=== PATIENT | male | born 1990 | race Caucasian/White ===

== ENCOUNTER 2020-02-07 15:07 | Emergency (ER) | payer SELFPAY ==
[2020-02-07 15:34] VITALS: BP 174/120; PULSE 105; RESP 18; TEMP 36.3; O2SAT 96; BMI 32.1
--- NOTE | 2020-02-07 15:46 | W.ED.BACK ---
HPI - Back Pain/Injury General: Chief Complaint: Back Pain/Injury Stated Complaint: Neck/shoulder pain/ blurry vision Time Seen by Provider: 02/07/20 15:37 History of Present Illness: HPI Narrative: Patient is a 29-year-old male comes to the ED with chronic neck pain. Patient has been having this neck pain for the past 3 months. The past couple days the pain has gotten worse and patient reports having headache and nausea. Patient has taken some ibuprofen to help with pain and is provided little relief. 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 Associated symptoms: Reports nausea; Deny abdominal pain, chills, dysuria, fatigue, fever(s), hematuria or vomiting Review of Systems Const: Denies: fever(s), chills or fatigue Eyes: Denies: change in vision or eye discomfort ENMT: Denies: throat pain, odynophagia, nasal discharge or nasal congestion Card: Denies: chest pain, palpitations, edema, swelling of feet/ankles, dyspnea on exertion or orthopnea Resp: Denies: dyspnea, productive cough or non-productive cough GI: Reports: nausea; Denies: abdominal pain, vomiting, diarrhea, constipation or hematochezia : Denies: flank pain, difficulty urinating, dysuria or hematuria Musc: Reports: neck pain; Denies: back pain or extremity swelling Skin/Breast: Denies: rash or new lesions Neuro: Reports: headache(s) (Patient says neck pain causes a headache and some nausea.); Denies: numbness in extremities or weakness in extremities [facility] ED PFSH: Family History Father , 81 CAD (coronary artery disease) Hypertension Mother Diabetes CAD (coronary artery disease) Psychiatric illness Bipolar, Schizophrenia Social History Smoking and tobacco status: never smoked Alcohol intake: never Marital status: Current occupational status: employed Physical Exam Const: COMMON NORMALS: no acute distress, patient oriented x3, healthy appearing and alert GENERAL APPEARANCE: cooperative and comfortable HENMT: COMMON NORMALS: normocephalic HEAD & SCALP: normocephalic MOUTH: Normal oral and palatal mucosa present THROAT: posterior oropharynx normal and uvula midline Eye: COMMON NORMALS: Equal, round and reactive pupils present and conjunctivae normal CONJUNCTIVA: Yes conjunctivae normal PUPIL: Yes Equal, round and reactive pupils present Neck/C-Spine: COMMON NORMALS: supple GENERAL: Yes normal visual inspection CERVICAL SPINE: Yes Paracervical muscle tenderness and Yes Trapezius muscle tenderness Resp: COMMON NORMALS: normal respiratory effort, No retractions, No use of accessory muscles and clear to auscultation bilaterally AUSCULTATION: clear to auscultation bilaterally Cardio: COMMON NORMALS: regular rate, regular rhythm, S1 normal heart sound present, S2 normal heart sound present, No gallops present (Cardio), No clicks present (Cardio), No murmurs present (Cardio) and Peripheral pulses 2+ throughout RATE: regular rate RHYTHM: regular rhythm HEART SOUNDS: S1 normal heart sound present and S2 normal heart sound present PERIPHERAL PULSES: Peripheral pulses 2+ throughout GI: COMMON NORMALS: Normal to inspection, nondistended, normoactive bowel sounds present, Soft to palpation, non-tender and no masses PALPATION: Yes Soft to palpation : COMMON NORMALS: Yes no CVA tenderness BLADDER/KIDNEY EXAM: Yes no CVA tenderness Back/Pelvis: COMMON NORMALS: no CVA tenderness Extremity: COMMON NORMALS: normal to inspection Neuro: COMMON NORMALS: patient oriented x3 and moves all extremities SENSORIUM/ORIENTATION: Yes alert Skin: COMMON NORMALS: no rashes or lesions noted GENERAL SKIN EXAM: no rashes or lesions noted and dry skin Course Vital Signs: Vital signs: Vital Signs Temperature 97.3 F L 02/07/20 15:34 Pulse Rate 105 H 02/07/20 15:34 Respiratory Rate 18 02/07/20 15:34 Blood Pressure 174/120 02/07/20 15:34 Pulse Oximetry 96 02/07/20 15:34 MDM - Back Pain/Injury MDM Narrative: Medical decision making narrative: Patient is a 29-year-old male who comes to the ED with neck pain. Patient has tenderness upon palpation of the right trapezius muscle and also of the paracervical muscles laterally. Patient was given a dose of Toradol, Norflex and prednisone while here in the ED. He was diagnosed with cervical muscle pain and strain of right trapezius muscle and sent home with a prescription for ibuprofen 800 mg, Robaxin and methylprednisone Dosepak. He was told to follow-up with his PCP in 7 to 10 days for reevaluation. Return to ED precautions given. Patient understood and with plan Discharge Plan Discharge Patient Disposition: Home Clinical Impression: Cervical muscle pain Strain of right trapezius muscle Qualifiers: Encounter type: initial encounter Qualified Code(s): S46.811A - Strain of other muscles, fascia and tendons at shoulder and upper arm level, right arm, initial encounter Condition: Stable Prescriptions: New methocarbamol 750 mg tablet 750 mg PO Q8H Qty: 30 RF: 0 ibuprofen 800 mg tablet 800 mg PO Q8H PRN (Reason: pain) Qty: 30 RF: 0 methylprednisolone 4 mg tablets,dose pack See Rx Instructions .ROUTE .COMPLEX Qty: 21 RF: 0 No Action ibuprofen 200 mg Tablet 200 mg PO Q6H PRN (Reason: Pain) RF: 0 Discharge Orders: Discharge Order (Routine); Ordered 02/07/20 Ordered By: Angel Luis Abarca Discharge Diet: Regular Discharge Activity: Increase activity as tolerated Patient Instructions: Muscle Strain (ED) Activity Restrictions/Additional Instructions: Follow-up with medical provider as directed in 7-10 days. Take medications as prescribed. Methocarbamol is a muscle relaxer and can cause drowsiness so take at night before bed. You can use methocarbamol during the day but use with caution due to its drowsy this side effect. Return to the ER or your medical provider if condition worsens. Please read and understand discharge instructions. If any questions, please ask. Discharge Date/Time: 02/07/20 16:30 Coding Level of Care Code ED Composition Worker for Ana Paula Parker Exam Comprehensive
[2020-02-07] MEDS: ketorolac 60 mg/2 mL INJ IM (16:14)
[2020-02-07] MEDS: orphenadrine 30 mg/mL Inj 2 mL 60 MG IM (16:15)
[2020-02-07] MEDS: predniSONE 20 mg Tablet 60 MG PO (16:16)
[2020-02-07 16:29] VITALS: BP 198/92; PULSE 78; RESP 18; O2SAT 96
== END 2020-02-07 16:30 | disposition home or self-care (01) ==
PROVIDERS: Emergency Provider Physician Assistant
DX: M54.2 Cervicalgia (principal); S46.811A Strain of other muscles, fascia and tendons at shoulder and upper arm level, right arm, initial encounter; X58.XXXA Exposure to other specified factors, initial encounter
CPT/HCPCS: 12345; 96372; 99281; 99283; J1885; J2360; J7512

== ENCOUNTER → 2020-04-27 15:18 | Outpatient (BNVA) | payer SELFPAY | PROVIDERS: Visit Provider Emergency Medicine | DX: M25.511 Pain in right shoulder (principal); I10 Essential (primary) hypertension; M54.2 Cervicalgia; Z86.39 Personal history of other endocrine, nutritional and metabolic disease | CPT/HCPCS: 73030; 80053; 80061; 83880; 84443; 85025 ==

== ENCOUNTER 2020-04-29 14:11 | Outpatient (CLI) | payer SELFPAY | END 2020-04-29 14:12 | disposition home or self-care (01) | LOC: LAB 14:15 | PROVIDERS: PCP Emergency Medicine; Visit Provider Emergency Medicine | DX: R89.9 Unspecified abnormal finding in specimens from other organs, systems and tissues (principal) | CPT/HCPCS: 84132 ==

== ENCOUNTER 2020-05-04 21:27 | Emergency (ER) | payer SELFPAY ==
--- NOTE | 2020-05-04 21:29 | XR_ITS ---
WS: [id number] XR chest 1V portable [id number] REASON FOR EXAM: Chest pain FINDINGS: The chest is unchanged compared to previous examination of 09/26/2018. The heart and mediastinum are within normal limits. No active pulmonary parenchymal or pleural disease is noted. The bony thorax is intact. XR/XR chest 1V portable [id number] IMPRESSION: No acute chest abnormality.
--- NOTE | 2020-05-04 21:29 | ECG_ITS ---
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[id number] Requested By: Violet Molina Order Number: [id number] Juan MD: MARY CAMARA Measurements Intervals [place] Rate: 101 P: 26 NH: 164 QRS: -38 QRSD: 107 T: 59 QT: 332 QTc: 432 Interpretive Statements SINUS TACHYCARDIA POSSIBLE LEFT ATRIAL ENLARGEMENT [-0.1mV P WAVE IN V1/V2] LEFT AXIS DEVIATION [QRS AXIS < -30] PATTERN CONSISTENT WITH PULMONARY DISEASE Compared to ECG 09/26/2018 19:31:51 Sinus rhythm no longer present Intraventricular conduction delay no longer present Electronically Signed On 05-05-2020 19:29:14 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
[2020-05-04 21:32] VITALS: BP 174/112; PULSE 115; RESP 15; TEMP 37.3; O2SAT 94; BMI 30.7
[2020-05-04 21:51] VITALS: BP 174/112; PULSE 104; RESP 28; O2SAT 91
[2020-05-04 21:57] LABS: Basophils # 0.1 10^3/uL (0.0-0.1); Basophils % 0.7 %; Eosinophils # 0.1 10^3/uL (0.0-0.8); Eosinophils % 0.8 %; Hematocrit 48.4 % (42.0-52.0); Hemoglobin 16.9 g/dL (11.7-16.6); Lymphocytes # 1.8 10^3/uL (0.8-4.8); Lymphocytes % 23.4 %; Mean Corpuscular HGB Conc 34.9 g/dL (30.0-36.0); Mean Corpuscular Hemoglobin 28.4 pg (28.0-34.0); Mean Corpuscular Volume 81.2 fL (80-94); Mean Platelet Volume 9.8 fL (7.4-10.4); Monocytes # 1.3 10^3/uL (0.2-0.9); Monocytes % 17.8 %; Neutrophils # 4.25 10^3/uL (1.8-7.7); Neutrophils % 56.6 %; Nucleated Red Blood Cells % 0 %; Platelet Count 234 10^3/cmm (130-400); Red Blood Count 5.96 10^6/uL (4.1-5.3); Red Cell Distribution Width 12.9 % (12.1-15.1); White Blood Count 7.5 10^3/uL (4.0-10.0)
[2020-05-04 22:00] VITALS: RESP 17
[2020-05-04] MEDS: morphine 4 mg/mL SDV 1 mL IVP (22:00)
[2020-05-04] MEDS: ondansetron 2 mg/ML SDV 2 mL 4 MG IVP (22:00)
--- NOTE | 2020-05-04 22:01 | ED_ITS ---
HPI - Chest Pain General: Chief Complaint: Chest Pain Stated Complaint: cp/numbness in both arms Time Seen by Provider: 05/04/20 21:34 Source: patient and family Mode of arrival: ambulatory Limitations: no limitations History of Present Illness: HPI narrative: David is a nice 29-year-old male who comes in complaining of chest pain. He has had the pain for 2 hours now constantly. It was abrupt in onset and the left side of his chest radiates straight through his back. He describes the pain as sharp and burning. Patient states it made his hands tingle. He denies any diaphoresis or vomiting but has been nauseated. He denies any fevers or chills. He states the pain is constant but intermittently will get worse. He is unaware of any exacerbating or alleviating factors. Patient states he has had symptoms like this several times in the past and he has sought medical attention for this but a definitive cause cannot be determined. Associated symptoms: Reports dyspnea; Deny abdominal pain, diaphoresis, fever(s), nausea, palpitations, syncope or vomiting Review of Systems Const: Denies: fever(s), chills, body aches, fatigue, malaise or diaphoresis Eyes: Denies: change in vision, blurry vision, photophobia, eye discomfort, eye discharge, eye redness or yellow eyes ENMT: Denies: throat pain, odynophagia, hoarseness, swelling of lips/tongue, ear or mastoid pain, ear discharge, change in hearing or nasal discharge Card: Reports: chest pain; Denies: palpitations, irregular heart rhythm, edema, lightheadedness, syncope, pre-syncope, dyspnea on exertion or orthopnea Resp: Reports: dyspnea; Denies: productive cough, non-productive cough, wheezing, hemoptysis or chest congestion GI: Denies: abdominal pain, nausea, vomiting, hematemesis, coffee ground emesis, heartburn, diarrhea, constipation, GI cramping, hematochezia or melena : Denies: flank pain, dysuria, urinary frequency, urinary urgency or hematuria Musc: Denies: neck pain, back pain, extremity pain, extremity swelling, joint pain, joint swelling, joint redness, joint warmth or joint stiffness Skin/Breast: Denies: rash, pruritus, erythema, skin pain or skin tenderness Neuro: Denies: headache(s), numbness in extremities, weakness in extremities, sensory changes, lack of coordination, difficulty walking, dizziness, vertigo, confusion, Slurred speech present or seizure-like activity Ramirez/Lymph: Denies: easy bruising, easy bleeding, petechiae, purpura or enlarged lymph nodes All/Imm: Denies: urticaria, throat swelling, tongue swelling, facial swelling or acute wheezing PFSH ED PFSH: Medical History History of hypokalemia Family History Father , 81 CAD (coronary artery disease) Hypertension Mother Diabetes CAD (coronary artery disease) Psychiatric illness Bipolar, Schizophrenia Social History Smoking and tobacco status: never smoked Alcohol intake: never Marital status: Current occupational status: employed Physical Exam Const: COMMON NORMALS: no acute distress, patient oriented x3, no limitations and alert GENERAL APPEARANCE: cooperative HENMT: COMMON NORMALS: normocephalic, atraumatic, external ears normal, EAC's normal and Normal external nose present HEAD & SCALP: normal to inspection, normocephalic and atraumatic FACE & SINUS: normal facial exam and face symmetric NOSE: Normal external nose present and Normal nares present EXTERNAL EAR: Yes external ears normal EXTERNAL AUDITORY CANAL: EAC's normal MOUTH: Normal oral and palatal mucosa present, lip normal and tongue normal Eye: COMMON NORMALS: Equal, round and reactive pupils present and conjunctivae normal GENERAL EYE: appearance normal, both eyes and all related structures ALIGNMENT: Yes alignment normal PERIORBITAL: periorbital findings normal EYELID: eyelids normal CONJUNCTIVA: Yes conjunctivae normal SCLERA: sclerae normal PUPIL: Yes Equal, round and reactive pupils present Neck/C-Spine: COMMON NORMALS: full ROM, no lymphadenopathy, supple, no meningeal signs and no JVD GENERAL: Yes normal visual inspection and Yes trachea midline Chest: COMMONS NORMALS: normal inspection of the chest and normal palpation of entire chest wall Resp: COMMON NORMALS: normal respiratory effort, No retractions, No use of accessory muscles and clear to auscultation bilaterally EFFORT & INSPECTION: Yes able to speak in complete sentences and Yes symmetric chest movement AUSCULTATION: clear to auscultation bilaterally, no crackles, no rales, no rhonchi and no wheezes Cardio: COMMON NORMALS: no JVD, regular rhythm, S1 normal heart sound present and S2 normal heart sound present RATE: tachycardic RHYTHM: regular rhythm HEART SOUNDS: S1 normal heart sound present, S2 normal heart sound present, no click, no gallops, no murmurs and no rubs GI: COMMON NORMALS: Soft to palpation and No hepatosplenomegaly present PAL PATION: Yes Soft to palpation, No Tenderness to palpation present (GI), No Guarding due to palpation present (GI), No Rigid due to palpation, Yes No hepatosplenomegaly present, No Hernia present, No Palpable mass present and No Pulsatile mass present : COMMON NORMALS: Yes no CVA tenderness BLADDER/KIDNEY EXAM: Yes no CVA tenderness Back/Pelvis: COMMON NORMALS: no CVA tenderness, thoracic and lumbar spine nor mal to inspection, no thoracic nor lumbar tenderness and thoraco-lumbar ROM normal Extremity: COMMON NORMALS: normal to inspection, full ROM, capillary refill normal, no joint enlargement, no clubbing, cyanosis or edema and no calf tenderness Neuro: COMMON NORMALS: patient oriented x3, CN's II-XII intact bilaterally, moves all extremities, no focal motor deficits and no sensory deficits noted SENSORIUM/ORIENTATION: Yes alert MENINGEAL SIGNS: Yes no meningeal signs SPEECH: speech normal Psych: COMMON NORMALS: mental status grossly normal, Normal thought process present, cooperative, normal affect, speech normal and activity/motor behavior normal SPEECH: Yes normal speech THOUGHT PROCESS: Normal thought process present Skin: COMMON NORMALS: no rashes or lesions noted, turgor normal, no jaundice, no petechiae and no mottling GENERAL SKIN EXAM: no rashes or lesions noted and turgor normal Course Vital Signs: Vital signs: Vital Signs Temperature 99.2 F 05/04/20 21:32 Pulse Rate 94 05/04/20 23:54 Respiratory Rate 21 H 05/04/20 23:54 Blood Pressure 147/106 05/04/20 23:54 Pulse Oximetry 90 05/04/20 23:54 MDM - Chest Pain MDM Narrative: Medical decision making narrative: 0044 -the patient symptoms have resolved. His vital signs are stable, his blood pressure is improved and he is no longer tachycardic. His D-dimer is negative and he has negative CTA which should rule out a PE. He does have a left lower lobe basilar focal opacity or groundglass nodule. I am going to treat this like a possible pneumonia as this is in the area that he had pain. Patient has no fever, cough or otherwise. Patient is refusing a Covid test but overall his clinical picture does not appear like a Covid problem. Patient agrees to follow-up with Dinh VELIZ for referral to possible pulmonology or cardiology for further evaluation and care. This time the patient symptoms have resolved. Serious evidence of a deep space infection, neurologic problem or PE. The patient agrees to return to the symptoms change or worsen but at this time he is feeling better and would like to be discharged. Lab Data: Labs: Lab Results 05/04/20 05/04/20 05/04/20 Range/Units 21:48 21:48 21:48 WBC 7.5 (4.0-10.0) 10^3/ uL RBC 5.96 H (4.1-5.3) 10^6/u L Hgb 16.9 H (11.7-16.6) g/dL Hct 48.4 (42.0-52.0) % MCV 81.2 (80-94) fL MCH 28.4 (28.0-34.0) pg MCHC 34.9 (30.0-36.0) g/dL RDW 12.9 (12.1-15.1) % Plt Count 234 (130-400) 10^3/c mm MPV 9.8 (7.4-10.4) fL Neut % (Auto) 56.6 % Lymph % (Auto) 23.4 % Hitchcock % (Auto) 17.8 % Eos % (Auto) 0.8 % Baso % (Auto) 0.7 % Neut # (Auto) 4.25 (1.8-7.7) 10^3/u L Lymph # (Auto) 1.8 (0.8-4.8) 10^3/u L Hitchcock # (Auto) 1.3 H (0.2-0.9) 10^3/u L Eos # (Auto) 0.1 (0.0-0.8) 10^3/u L Baso # (Auto) 0.1 (0.0-0.1) 10^3/u L Nucleated RBC % (a uto) 0 % Nucleated RBCs # 0.0 /100WBC D-Dimer (0-0.59) ug/mIFE U Sodium 140 (136-145) mmol/L Potassium 2.8 L* (3.5-5.1) mmol/L Chloride 101 (98-107) mmol/L Carbon Dioxide 29 (22-29) mmol/L Anion Gap 12.8 (5-19) BUN 7 (6-20) mg/dL Creatinine 0.8 (0.7-1.2) mg/dL GFR Calculation 116.0 (90-130) mL/min Glucose 122 H (65-115) mg/dL Calculated Osmolal ity 289 (285-295) mOsm/k g Calcium 9.0 (8.5-10.5) mg/dL Magnesium 2.0 (1.7-2.3) mg/dL Total Bilirubin 0.9 (0.15-1.2) mg/dL AST 62 H (0-40) U/L ALT 81 H (0-41) U/L Alkaline Phosphata se 116 (40-130) IU/L Troponin T Baselin e 7 (0-15) ng/L Troponin T 120 Min igiugig (0-15) ng/L Delta Troponin T (0-10) ABS# Total Protein 6.5 L (6.6-8.7) g/dL Albumin 4.6 (3.5-5.2) g/dL Globulin 1.9 (1.3-4.6) g/dL Urine Color (Yellow) Urine Appearance (CLEAR) Urine pH (5-7) Ur Specific Gravit y (1.005-1.030) Urine Protein (Negative) Urine Glucose (UA) (Normal) Urine Ketones (Negative) Urine Blood (Negative) Urine Nitrate (Negative) Urine Bilirubin (Negative) Urine Urobilinogen (Negative) mg/dL Ur Leukocyte Sugar ase (Negative) Urine Opiates Scre en (Negative) ng/mL Ur Barbiturates Sc reen (Negative) ng/mL Ur Phencyclidine S crn (Negative) ng/mL Ur Amphetamines Sc reen (Negative) ng/mL U Benzodiazepines Scrn (Negative) ng/mL Urine Cocaine Scre en (Negative) ng/mL U Marijuana (THC) Screen (Negative) ng/mL Ethyl Alcohol < 10 (0-10) mg/dL 05/04/20 05/04/20 05/04/20 Range/Units 21:48 22:30 22:30 WBC (4.0-10.0) 10^3/ uL RBC (4.1-5.3) 10^6/u L Hgb (11.7-16.6) g/dL Hct (42.0-52.0) % MCV (80-94) fL MCH (28.0-34.0) pg MCHC (30.0-36.0) g/dL RDW (12.1-15.1) % Plt Count (130-400) 10^3/c mm MPV (7.4-10.4) fL Neut % (Auto) % Lymph % (Auto) % Hitchcock % (Auto) % Eos % (Auto) % Baso % (Auto) % Neut # (Auto) (1.8-7.7) 10^3/u L Lymph # (Auto) (0.8-4.8) 10^3/u L Hitchcock # (Auto) (0.2-0.9) 10^3/u L Eos # (Auto) (0.0-0.8) 10^3/u L Baso # (Auto) (0.0-0.1) 10^3/u L Nucleated RBC % (a uto) % Nucleated RBCs # /100WBC D-Dimer 0.44 (0-0.59) ug/mIFE U Sodium (136-145) mmol/L Potassium (3.5-5.1) mmol/L Chloride (98-107) mmol/L Carbon Dioxide (22-29) mmol/L Anion Gap (5-19) BUN (6-20) mg/dL Creatinine (0.7-1.2) mg/dL GFR Calculation (90-130) mL/min Glucose (65-115) mg/dL Calculated Osmolal ity (285-295) mOsm/k g Calcium (8.5-10.5) mg/dL Magnesium (1.7-2.3) mg/dL Total Bilirubin (0.15-1.2) mg/dL AST (0-40) U/L ALT (0-41) U/L Alkaline Phosphata se (40-130) IU/L Troponin T Baselin e (0-15) ng/L Troponin T 120 Min igiugig (0-15) ng/L Delta Troponin T (0-10) ABS# Total Protein (6.6-8.7) g/dL Albumin (3.5-5.2) g/dL Globulin (1.3-4.6) g/dL Urine Color Yellow (Yellow) Urine Appearance Clear (CLEAR) Urine pH 7 (5-7) Ur Specific Gravit y 1.015 (1.005-1.030) Urine Protein Neg (Negative) Urine Glucose (UA) Norm (Normal) Urine Ketones Negative (Negative) Urine Blood Neg (Negative) Urine Nitrate Negative (Negative) Urine Bilirubin Neg (Negative) Urine Urobilinogen 8 H (Negative) mg/dL Ur Leukocyte Sugar ase Negative (Negative) Urine Opiates Scre en Negative (Negative) ng/mL Ur Barbiturates Sc reen Negative (Negative) ng/mL Ur Phencyclidine S crn Negative (Negative) ng/mL Ur Amphetamines Sc reen Negative (Negative) ng/mL U Benzodiazepines Scrn Negative (Negative) ng/mL Urine Cocaine Scre en Negative (Negative) ng/mL U Marijuana (THC) Screen Negative (Negative) ng/mL Ethyl Alcohol (0-10) mg/dL 05/04/20 Range/Units 23:56 WBC (4.0-10.0) 10^3/ uL RBC (4.1-5.3) 10^6/u L Hgb (11.7-16.6) g/dL Hct (42.0-52.0) % MCV (80-94) fL MCH (28.0-34.0) pg MCHC (30.0-36.0) g/dL RDW (12.1-15.1) % Plt Count (130-400) 10^3/c mm MPV (7.4-10.4) fL Neut % (Auto) % Lymph % (Auto) % Hitchcock % (Auto) % Eos % (Auto) % Baso % (Auto) % Neut # (Auto) (1.8-7.7) 10^3/u L Lymph # (Auto) (0.8-4.8) 10^3/u L Hitchcock # (Auto) (0.2-0.9) 10^3/u L Eos # (Auto) (0.0-0.8) 10^3/u L Baso # (Auto) (0.0-0.1) 10^3/u L Nucleated RBC % (a uto) % Nucleated RBCs # /100WBC D-Dimer (0-0.59) ug/mIFE U Sodium (136-145) mmol/L Potassium (3.5-5.1) mmol/L Chloride (98-107) mmol/L Carbon Dioxide (22-29) mmol/L Anion Gap (5-19) BUN (6-20) mg/dL Creatinine (0.7-1.2) mg/dL GFR Calculation (90-130) mL/min Glucose (65-115) mg/dL Calculated Osmolal ity (285-295) mOsm/k g Calcium (8.5-10.5) mg/dL Magnesium (1.7-2.3) mg/dL Total Bilirubin (0.15-1.2) mg/dL AST (0-40) U/L ALT (0-41) U/L Alkaline Phosphata se (40-130) IU/L Troponin T Baselin e (0-15) ng/L Troponin T 120 Min igiugig 7.16 (0-15) ng/L Delta Troponin T 0.16 (0-10) ABS# Total Protein (6.6-8.7) g/dL Albumin (3.5-5.2) g/dL Globulin (1.3-4.6) g/dL Urine Color (Yellow) Urine Appearance (CLEAR) Urine pH (5-7) Ur Specific Gravit y (1.005-1.030) Urine Protein (Negative) Urine Glucose (UA) (Normal) Urine Ketones (Negative) Urine Blood (Negative) Urine Nitrate (Negative) Urine Bilirubin (Negative) Urine Urobilinogen (Negative) mg/dL Ur Leukocyte Sugar ase (Negative) Urine Opiates Scre en (Negative) ng/mL Ur Barbiturates Sc reen (Negative) ng/mL Ur Phencyclidine S crn (Negative) ng/mL Ur Amphetamines Sc reen (Negative) ng/mL U Benzodiazepines Scrn (Negative) ng/mL Urine Cocaine Scre en (Negative) ng/mL U Marijuana (THC) Screen (Negative) ng/mL Ethyl Alcohol (0-10) mg/dL EKG Data^: EKG 1: Attestation: I personally reviewed and interpreted this EKG as follows: EKG interpretation date: 05/04/20 EKG interpretation time: 21:41 Interpretation: Sinus tachycardia at 101 beats a minute, left axis deviation, left anterior fascicular block, LVH. EKG 2: Attestation: I personally reviewed and interpreted this EKG as follows: EKG interpretation date: 05/04/20 EKG interpretation time: 23:53 Interpretation: Normal sinus rhythm at 88 beats a minute, left axis deviation, left anterior fascicular block, no with acute ST-T wave changes. Discharge Plan Discharge Patient Disposition: Home Clinical Impression: Acute hypokalemia Chest pain Qualifiers: Chest pain type: unspecified Qualified Code(s): R07.9 - Chest pain, unspecified Pneumonia Qualifiers: Pneumonia type: due to unspecified organism Laterality: left Lung location: lower lobe of lung Qualified Code(s): J18.9 - Pneumonia, unspecified organism Condition: Stable Prescriptions: New doxycycline hyclate 100 mg capsule 100 mg PO BID 10 Days Qty: 20 RF: 0 cefdinir 300 mg capsule 300 mg PO Q12H 10 Days Qty: 20 RF: 0 No Action omeprazole 40 mg capsule,delayed release(DR/EC) 40 mg PO DAILY 84 Days Qty: 90 RF: 0 sucralfate [Carafate] 1 gram tablet 1 gm PO TID Qty: 30 RF: 0 losartan 25 mg tablet 25 mg PO DAILY Qty: 30 RF: 2 methocarbamol [Robaxin-750] 750 mg tablet 750 mg PO .bedtime Qty: 20 RF: 0 potassium chloride 8 mEq capsule, extended release 8 meq PO DAILY Qty: 30 RF: 1 ibuprofen 200 mg Tablet 200 mg PO Q6H PRN (Reason: Pain) RF: 0 Discharge Orders: Discharge Order (Routine); Ordered 05/05/20 Ordered By: Violet Daugherty Referrals: Dinh Mcintyre PA [Primary Care Provider] - 1-3 days Discharge Diet: Advance as tolerated Discharge Activity: Increase activity as tolerated Patient Instructions: Chest Pain (ED), Bacterial Pneumonia (ED) Activity Restrictions/Additional Instructions: Please return to the ER immediately for any of the signs or symptoms listed on your discharge instruction sheets, worsening/changing of your symptoms, you are not getting better as quickly as expected, or for ANY other cause or concerns. Be certain to follow-up with Dinh Mcintyre for possible referral for your recurrent low potassium. You also likely need further evaluation for these recurrent chest pain episodes with either pulmonology or cardiology. Follow-up to be certain that this nodule or pneumonia in your lung resolves as this nodule or infection will need to be watched to make sure it clears or followed until it can be further determined what this area is. Coding Level of Care Code ED Dispatch Manager for José Miguelg Fwd Exam Comprehensive
[2020-05-04] MEDS: sodium chloride 0.9% 1,000 ML 999 ML IV (22:02)
[2020-05-04 22:15] LABS: D Dimer 0.44 ug/mIFEU (0-0.59)
[2020-05-04 22:18] LABS: Alanine Aminotransferase 81 U/L (0-41); Albumin Level 4.6 g/dL (3.5-5.2); Alkaline Phosphatase 116 IU/L (40-130); Anion Gap 12.8 (5-19); Aspartate Amino Transferase 62 U/L (0-40); Blood Urea Nitrogen 7 mg/dL (6-20); Carbon Dioxide 29 mmol/L (22-29); Chloride 101 mmol/L (98-107); Globulin 1.9 g/dL (1.3-4.6); Glucose 122 mg/dL (65-115); Osmolality Calculated 289 mOsm/kg (285-295); Sodium 140 mmol/L (136-145); Total Bilirubin 0.9 mg/dL (0.15-1.2); Total Protein 6.5 g/dL (6.6-8.7)
[2020-05-04 22:20] LABS: Troponin(5th) Baseline 7 ng/L (0-15)
--- NOTE | 2020-05-04 22:22 | CTR_ITS ---
PROCEDURE INFORMATION: Exam: CT Angiography Chest With Contrast Exam date and time: 05/04/2020 11:15 PM Age: 29 years old Clinical indication: Tachypnea and other: Hypoxia; Chest pain; Additional info: Tachycardia, hypoxia, chest pain TECHNIQUE: Imaging protocol: Computed tomographic angiography of the chest with intravenous contrast. 3D rendering (Not supervised by radiologist): MIP and/or 3D reconstructed images were created by the technologist. Radiation optimization: All CT scans at this facility use at least one of these dose optimization techniques: automated exposure control; mA and/or kV adjustment per patient size (includes targeted exams where dose is matched to clinical indication); or iterative reconstruction. Contrast material: VISI; Contrast volume: 145 ml; Contrast route: INTRAVENOUS (IV); COMPARISON: CR XR chest 1V portable [id number] 2020-05-04 21:34 RADIATION DOSE METRICS: Total DLP (mGy-cm): 1276.94 FINDINGS: Pulmonary arteries: No filling defects in the pulmonary arteries to suggest pulmonary emboli. The pulmonary arteries demonstrate moderate central enlargement, consistent with moderate pulmonary hypertension. Congested pulmonary vasculature. Aorta: Unremarkable. No aortic aneurysm. No aortic dissection. Lungs: Left lower lobe posterior basilar 2.1 cm focal opacity or ground-glass nodule, recommend follow-up. Pleural space: Unremarkable. No pneumothorax. No pleural effusion. Heart: Mild cardiac enlargement. Mediastinal space: Mild gastro-esophageal thickening. Question distal esophagitis. Lymph nodes: Unremarkable. No enlarged lymph nodes. Liver: Enlarged low attenuating liver, evidence of hepatic steatosis. Spleen: 12.5 cm enlarged spleen. Stomach and bowel: Numerous colonic diverticula. Bones/joints: Unremarkable. No acute fracture. Soft tissues: Unremarkable. CT/CT angio chest PE protcl [id number] IMPRESSION: 1. No filling defects in the pulmonary arteries to suggest pulmonary emboli. 2. Left lower lobe posterior basilar 2.1 cm focal opacity or ground-glass nodule, recommend follow-up. 3. Mild gastro-esophageal thickening. Question distal esophagitis. COMMENTS: As per Fleischner Society guidelines for follow-up and management of pulmonary nodules: Recommend initial follow-up chest CT at 3, 9 and 24 months. Consider contrast enhanced chest CT, PET scan and/or biopsy as clinically warranted. Radiation Dose CTDIVOL = (mGy): DLP = 1276.94 (mGy-cm)
[2020-05-04 22:49] LABS: Alcohol Level < 10 mg/dL (0-10); Potassium 2.8 mmol/L (3.5-5.1)
[2020-05-04 23:10] LABS: Add Urine Microscopic? NO
[2020-05-04] MEDS: potassium chloride premix 100 ML 50 MEQ IV (23:10)
[2020-05-04] MEDS: potassium chloride ER 10 mEq Tablet 40 MEQ PO (23:10)
--- NOTE | 2020-05-04 23:10 | PC.NURSE ---
pt refused Covid swab at this time. [facility] notified.
[2020-05-04 23:20] LABS: Specific Gravity, Urine 1.015 (1.005-1.030); Urine Appearance Clear (CLEAR); Urine Color Yellow (Yellow); pH Urine 7 (5-7)
[2020-05-04 23:21] LABS: Bilirubin Urine Neg (Negative); Blood Urine Neg (Negative); Glucose Urine UA Norm (Normal); Ketones Urine Negative (Negative); Leukocyte Esterase Urine Negative (Negative); Nitrate Urine Negative (Negative); Protein Urine Neg (Negative); Urobilinogen Urine 8 mg/dL (Negative)
[2020-05-04 23:24] VITALS: BP 147/112; PULSE 85; RESP 18; O2SAT 95
[2020-05-04 23:25] LABS: Amphetamines Screen Urine Negative (Negative); Barbiturates Screen Urine Negative (Negative); Benzodiazepines Screen Urine Negative (Negative); Cocaine Screen Urine Negative (Negative); Opiate Screen Urine Negative (Negative); PCP Screen Urine Negative (Negative); THC Screen Urine Negative (Negative)
--- NOTE | 2020-05-04 23:29 | ECG_ITS ---
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1990 Requested By: Violet Molina Order Number: [id number] Juan MD: MARY CAMARA Measurements Intervals [place] Rate: 88 P: 28 [place]: 169 QRS: -35 QRSD: 116 T: 58 QT: 361 QTc: 437 Interpretive Statements SINUS RHYTHM LEFT AXIS DEVIATION [QRS AXIS < -30] PATTERN CONSISTENT WITH PULMONARY DISEASE MODERATE INTRAVENTRICULAR CONDUCTION DELAY [110+ ms QRS DURATION] NONSPECIFIC T-WAVE ABNORMALITY Compared to ECG 05/04/2020 21:41:00 Intraventricular conduction delay now present T-wave abnormality now present Sinus tachycardia no longer present Electronically Signed On 05-05-2020 19:33:39 INSURANCE DEFENSE ATTORNEY by MARY CAMARA [id number]
[2020-05-04] MEDS: iodixanol 320 mg/mL 100mL Btl IV (23:36)
[2020-05-04 23:54] VITALS: BP 147/106; PULSE 94; RESP 21; O2SAT 90
[2020-05-05 00:30] LABS: Troponin 5 2HR 7.16 ng/L (0-15); Troponin 5 2HR Delta 0.16 ABS# (0-10)
[2020-05-05] MEDS: pantoprazole 40 mg SDV 80 MG IVP (01:54)
[2020-05-05 01:56] VITALS: BP 132/76; PULSE 87; RESP 16; O2SAT 99
--- NOTE | 2020-05-05 03:29 | ECG_ITS ---
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1990 Requested By: Violet Molina Order Number: [id number] Juan MD: MARY CAMARA Measurements Intervals [place] Rate: 101 P: 26 [place]: 164 QRS: -38 QRSD: 107 T: 59 QT: 332 QTc: 432 Interpretive Statements SINUS TACHYCARDIA POSSIBLE LEFT ATRIAL ENLARGEMENT [-0.1mV P WAVE IN V1/V2] LEFT AXIS DEVIATION [QRS AXIS < -30] PATTERN CONSISTENT WITH PULMONARY DISEASE Compared to ECG 09/26/2018 19:31:51 Sinus rhythm no longer present Intraventricular conduction delay no longer present Electronically Signed On 05-05-2020 19:33:50 SPECIAL SERVICE REPRESENTATIVE by MARY CAMARA [id number] f
== END 2020-05-05 01:58 | disposition home or self-care (01) ==
PROVIDERS: Emergency Provider Emergency Medicine; PCP Emergency Medicine
DX: R07.9 Chest pain, unspecified (principal); J18.9 Pneumonia, unspecified organism; E87.6 Hypokalemia
CPT/HCPCS: 12345; 71045; 71275; 80053; 80306; 80307; 81003; 83735; 84484; 85025; 85378; 93005; 96365; 96366; 96375; 99283; 99284; C9113; J2270; J2405; J3480; J7030; Q9967

== ENCOUNTER 2021-05-22 10:27 | Emergency (ER) | payer SELFPAY ==
[2021-05-22 10:38] VITALS: BP 175/120; PULSE 88; RESP 18; TEMP 36.9; O2SAT 98; BMI 33.5
--- NOTE | 2021-05-22 10:48 | ECG_ITS ---
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 Measurements Intervals [place] Rate: 85 P: 37 [place]: 170 QRS: -24 QRSD: 112 T: 61 QT: 361 QTc: 430 Interpretive Statements SINUS RHYTHM BORDERLINE LEFT AXIS DEVIATION [QRS AXIS < -20] MODERATE INTRAVENTRICULAR CONDUCTION DELAY [110+ ms QRS DURATION] NONSPECIFIC T-WAVE ABNORMALITY Compared to ECG 05/04/2020 23:53:08 No significant changes Electronically Signed On 05-23-2021 17:40:14 AD OPERATIONS SPECIALIST by Aniket Block M.D. [email or web address] Organizationdiamond [facility].[employer]/store/[id number] f
--- NOTE | 2021-05-22 10:48 | XRR_ITS ---
PROCEDURE INFORMATION: Exam: XR Chest Exam date and time: 05/22/2021 10:48 AM Age: 30 years old Clinical indication: Cough and dyspnea; Patient HX: High blood pressure; Additional info: Dyspnea/cough TECHNIQUE: Imaging protocol: XR of the chest. Views: 1 view. Other technique: Frontal portable upright view of the chest. COMPARISON: CR XR chest 1V portable [id number] 05/04/2020 9:34 PM FINDINGS: Lungs: The lungs are clear bilaterally. The pulmonary vasculature is normal. Pleural spaces: No pleural effusion. No pneumothorax. Heart/Mediastinum: The heart is normal in size and contour. Mediastinum: Stable. Bones/joints: Stable. XR/XR chest 1V portable [id number] IMPRESSION: No acute cardiopulmonary abnormality identified. Radiation Dose CTDIVOL = (mGy): DLP = (mGy-cm)
[2021-05-22] MEDS: hyDRALAzine 25 mg Tablet 50 MG PO (11:05)
[2021-05-22] MEDS: amlodipine 10 mg Tablet PO (11:05)
--- NOTE | 2021-05-22 11:08 | ED_ITS ---
HPI - General Adult General: Chief complaint: General Medical Stated complaint: BLOOD PRESSURE ISSUES/SENT BY PCP Time Seen by Provider: 05/22/21 10:36 History of Present Illness: HPI narrative: 30-year-old male presents emergency room with complaint of elevated blood pressure. He states he just generally does not feel well. He has a bit of a headache. He denies any chest pain. He states he feels like he has been swelling lately. He is on chlorthalidone. He had previously been on losartan is no longer taking. He denies any chest pain denies any abdominal pain. He states he does occasionally get short of breath with exertion but no accompanying chest pain. He also reports some mild dysuria. Onset (ago): day(s) Severity: mild Pain Consistency: constant Relieving factors: none Exacerbating factors: none Associated symptoms: Reports dyspnea and malaise; Deny chest pain, confusion, cough, diaphoresis, decreased appetite, fevers/chills, headache(s), nausea, rash, palpitations, seizures, short of breath, syncope, vomiting or weakness Treatments prior to arrival: none Review of Systems Const: Reports: malaise; Denies: diaphoresis ENMT: Denies: throat pain, ear or mastoid pain, nasal discharge or nasal congestion Card: Denies: chest pain, palpitations or syncope Resp: Reports: dyspnea GI: Denies: nausea or vomiting : Denies: flank pain, dysuria, urinary frequency or urinary urgency Skin/Breast: Denies: rash Neuro: Denies: headache(s) or confusion [facility] ED PFSH: Medical History (Updated 05/22/21 @ 12:47 by Paul Araya DO) History of hypokalemia Family History Father , 81 CAD (coronary artery disease) Hypertension Mother Diabetes CAD (coronary artery disease) Psychiatric illness Bipolar, Schizophrenia Social History Smoking and tobacco status: never smoked Alcohol intake: never Marital status: Current occupational status: employed Physical Exam Const: COMMON NORMALS: no acute distress GENERAL APPEARANCE: cooperative and comfortable ORIENTATION/CONSCIOUSNESS: Yes awake, Yes oriented to person, Yes oriented to place and Yes oriented to time HENMT: COMMON NORMALS: normocephalic, atraumatic and hearing grossly normal bilaterally HEAD & SCALP: normocephalic and atraumatic Neck/C-Spine: COMMON NORMALS: no JVD Resp: COMMON NORMALS: normal respiratory effort, No retractions, No use of accessory muscles and clear to auscultation bilaterally AUSCULTATION: clear to auscultation bilaterally Cardio: COMMON NORMALS: no JVD, regular rate, regular rhythm and No murmurs present (Cardio) RATE: regular rate RHYTHM: regular rhythm GI: COMMON NORMALS: Soft to palpation and No hepatosplenomegaly present AUSCULTATION: Yes normoactive bowel sounds PALPATION: Yes Soft to palpation, No Tenderness to palpation present (GI), No Guarding due to palpation present (GI) and Yes No hepatosplenomegaly present Extremity: COMMON NORMALS: normal to inspection, capillary refill normal, no clubbing, cyanosis or edema, no calf tenderness and no pedal edema Neuro: SENSORIUM/ORIENTATION: Yes oriented to person, Yes oriented to place and Yes oriented to time Skin: COMMON NORMALS: no rashes or lesions noted GENERAL SKIN EXAM: no rashes or lesions noted Course Vital Signs: Vital signs: Vital Signs Temperature 98.4 F 05/22/21 10:38 Pulse Rate 78 05/22/21 11:26 Respiratory Rate 16 05/22/21 11:26 Blood Pressure 162/105 05/22/21 11:26 Pulse Oximetry 92 05/22/21 11:26 MDM - General Adult MDM Narrative: Medical decision making narrative: Patient has painless hematuria with no sign of infection and no symptoms. He does have nephrolithiasis but there is nothing in the ureter at this point. Did not start him on any antibiotics there is no sign of infection at this time we did start him on amlodipine and metoprolol for his blood pressure and asked him to follow- up with his primary care doctor within the next 3 to 5 days to reassess his blood pressure return if he has further problems. We will have case management get him set up to see Dr. Elias. Lab Data: Labs: Lab Results 05/22/21 05/22/21 05/22/21 10:50 11:23 11:23 WBC 7.8 10^3/uL 10^3/ uL (4.0-10.0) RBC 5.84 10^6/uL H 10 ^6/uL (4.1-5.3) Hgb 17.1 g/dL H g/dL (11.7-16.6) Hct 46.7 % % (42.0-52.0) MCV 80.0 fl fl (80-94) MCH 29.3 pg pg (28.0-34.0) MCHC 36.6 g/dL H g/dL (30.0-36.0) RDW 12.3 % % (12.1-15.1) Plt Count 231 10^3/cmm 10^3 /cmm (130-400) MPV 10.3 fL fL (7.4-10.4) Neut % (Auto) 58.9 % % Lymph % (Auto) 29.8 % % [place] % (Auto) 7.9 % % Eos % (Auto) 2.9 % % Baso % (Auto) 0.1 % % Neut # (Auto) 4.61 10^3/uL 10^3 /uL (1.8-7.7) Lymph # (Auto) 2.3 10^3/uL 10^3/ uL (0.8-4.8) [place] # (Auto) 0.6 10^3/uL 10^3/ uL (0.2-0.9) Eos # (Auto) 0.2 10^3/uL 10^3/ uL (0.0-0.8) Baso # (Auto) 0.0 10^3/uL 10^3/ uL (0.0-0.1) Nucleated RBC % (a uto) 0 % % Nucleated RBCs # 0.0 /100WBC /100W BC Sodium 139 mmol/L mmol/L (136-145) Potassium 3.3 mmol/L L mmol /L (3.5-5.1) Chloride 101 mmol/L mmol/L (98-107) Carbon Dioxide 27 mmol/L mmol/L (22-29) Anion Gap 14.3 (5-19) BUN 8 mg/dL mg/dL (6-20) Creatinine 0.6 mg/dL L mg/dL (0.7-1.2) GFR Calculation 160.4 mL/min H mL /min (90-130) Glucose 129 mg/dL H mg/dL (65-115) Calculated Osmolal ity 288 mOsm/kg mOsm/ kg (285-295) Calcium 8.9 mg/dL mg/dL (8.5-10.5) Total Bilirubin 0.6 mg/dL mg/dL (0.15-1.2) AST 30 U/L U/L (0-40) ALT 47 U/L H U/L (0-41) Alkaline Phosphata se 114 IU/L IU/L (40-130) Total Protein 7.0 g/dL g/dL (6.6-8.7) Albumin 4.4 g/dL g/dL (3.5-5.2) Globulin 2.6 g/dL g/dL (1.3-4.6) Urine Color Yellow (Yellow) Urine Appearance Clear (CLEAR) Urine pH 7 (5-7) Ur Specific Gravit y 1.005 (1.005-1.030) Urine Protein Neg (Negative) Urine Glucose (UA) Trace H (Normal) Urine Ketones Negative (Negative) Urine Blood 3+ H (Negative) Urine Nitrate Negative (Negative) Urine Bilirubin Neg (Negative) Urine Urobilinogen Norm mg/dL mg/dL (Negative) Ur Leukocyte Sugar ase Negative (Negative) Urine RBC 25-40 /hpf H /hpf (0-2) Urine WBC 0-4 /hpf H /hpf (0-5) Ur Squamous Epith Cells 0-4 /hpf H /hpf (0-5) Amorphous Sediment Not Reportable Urine Bacteria Trace /hpf /hpf (NONE) Discharge Plan Discharge Patient Disposition: Home Clinical Impression: Hematuria, Hypertension Condition: Stable Prescriptions: New amlodipine 10 mg tablet 10 mg PO DAILY Qty: 30 RF: 0 Toprol XL 25 mg tablet extended release 24 hr 25 mg PO DAILY Qty: 30 RF: 0 No Action omeprazole 40 mg capsule,delayed release(DR/EC) 40 mg PO DAILY 84 Days Qty: 90 RF: 0 sucralfate [Carafate] 1 gram tablet 1 gm PO TID Qty: 30 RF: 0 losartan 25 mg tablet 25 mg PO DAILY Qty: 30 RF: 2 methocarbamol [Robaxin-750] 750 mg tablet 750 mg PO .bedtime Qty: 20 RF: 0 potassium chloride 8 mEq capsule, extended release 8 meq PO DAILY Qty: 30 RF: 1 ibuprofen 200 mg Tablet 200 mg PO Q6H PRN (Reason: Pain) RF: 0 Discharge Orders: Discharge ED (Routine); Ordered 05/22/21 Ordered By: Paul Araya Referrals: Dinh Mcintyre PA [Primary Care Provider] - Discharge Diet: Usual diet Discharge Activity: Increase activity as tolerated Patient Instructions: Opioid Safety Activity Restrictions/Additional Instructions: Stop chlorthalidone. Start the amlodipine and Toprol as above. Continue the losartan. Follow-up with your primary care doctor within the week to recheck blood pressure. funeral service manager will make arrangements for you to see Dr. Elias for the hematuria and the calcified area in the bladder. Coding Level of Care Code ED Local Flatbed Driver for Chg Fwd Exam Comprehensive
[2021-05-22 11:11] LABS: Specific Gravity, Urine 1.005 (1.005-1.030); Urine Appearance Clear (CLEAR); Urine Color Yellow (Yellow); pH Urine 7 (5-7)
[2021-05-22 11:12] LABS: Add Urine Microscopic? YES; Bacteria Urine TRACE /hpf; Bilirubin Urine Neg (Negative); Blood Urine 3+ (Negative); Glucose Urine UA Trace (Normal); Ketones Urine Negative (Negative); Leukocyte Esterase Urine Negative (Negative); Nitrate Urine Negative (Negative); Protein Urine Neg (Negative); RBC Urine 25-40 /hpf (0-2); Squamous Epithelial Cell Urine 0-4 /hpf (0-5); Urobilinogen Urine Norm (Negative); WBC Urine 0-4 /hpf (0-5)
[2021-05-22 11:13] LABS: Add Urine Culture? Yes
[2021-05-22] MEDS: labetalol 5 mg/mL SDV 20mL 10 MG IVP (11:20)
--- NOTE | 2021-05-22 11:23 | CT_ITS ---
WS: [id number] CT ABDOMEN AND PELVIS NONCONTRAST HISTORY: flank pain TECHNIQUE: Imaging performed through the abdomen and pelvis. Coronal and sagittal reformats are submi tted. All CT scans at [facility] use at least one of these dose optimization techniques: auto mated exposure control; mA and/or kV adjustment per patient size (includes targeted exams where dose is matched to clinical indication); or iterative reconstruction. DLP: 1903.82 mGy.cm COMPARISON: 11/09/2018 Lower thorax: Lung bases are clear. Visualized heart is normal. No hiatal hernia. Liver: Moderately enlarged liver with diffuse hepatic steatosis. No mass or bile duct dilatation. Gallbladder: Normal gallbladder. Pancreas: Normal size and attenuation. Normal pancreatic duct. No pancreatitis or mass. Spleen: Normal. Adrenal glands: Normal. No mass. Right kidney: Normal size kidney with no mass or hydronephrosis. Left kidney: Normal size kidney. There are multiple calcifications within the renal pelvis. The large st burden is in the mid to lower pelvis. Largest calcification which is nonobstructing measures 14 mm in diameter. LEFT ureter is very minimally prominent with perinephric stranding. No obstructing calc ification is noted within the ureter. Aorta: Normal abdominal aorta, no aneurysm or atherosclerosis. There are multiple collateral vessels adjacent to the lesser curvature of the stomach. No free fluid, intraperitoneal air or significant lymphadenopathy. GI tract: Normal appendix. No GI tract obstruction. Abdominal wall: Fat-containing hernia. Pelvis: Well-distended urinary bladder. There are multiple small calcific densities now in the depend ent portion of the urinary bladder. Largest diameter 9 mm x 3 mm. Osseous structures: 0 CT/CT kidney stone [id number] IMPRESSION: 1. No acute renal obstruction. There is very minimal prominence of the LEFT re nal pelvis and ureter but no calcification obstructing the ureter at this time. 2. Numerous LEFT renal calcifications are nonobstructing. Calcific burden has significantly increased since 11/09/2018. 3. There are small calcifications in the urinary bladder layering posteriorly with the burden measuring 9 x 3 mm. 4. Normal appendix. 5. Moderate hepatomegaly and hepatic steatosis.
[2021-05-22 11:26] VITALS: BP 162/105; PULSE 78; RESP 16; O2SAT 92
[2021-05-22 11:49] LABS: Basophils % 0.1 %; Eosinophils # 0.2 10^3/uL (0.0-0.8); Eosinophils % 2.9 %; Hematocrit 46.7 % (42.0-52.0); Hemoglobin 17.1 g/dL (11.7-16.6); Lymphocytes # 2.3 10^3/uL (0.8-4.8); Lymphocytes % 29.8 %; Mean Corpuscular HGB Conc 36.6 g/dL (30.0-36.0); Mean Corpuscular Hemoglobin 29.3 pg (28.0-34.0); Mean Platelet Volume 10.3 fL (7.4-10.4); Monocytes # 0.6 10^3/uL (0.2-0.9); Monocytes % 7.9 %; Neutrophils # 4.61 10^3/uL (1.8-7.7); Neutrophils % 58.9 %; Nucleated Red Blood Cells % 0 %; Platelet Count 231 10^3/cmm (130-400); Red Blood Count 5.84 10^6/uL (4.1-5.3); Red Cell Distribution Width 12.3 % (12.1-15.1); White Blood Count 7.8 10^3/uL (4.0-10.0)
[2021-05-22 12:21] LABS: Alanine Aminotransferase 47 U/L (0-41); Albumin Level 4.4 g/dL (3.5-5.2); Alkaline Phosphatase 114 IU/L (40-130); Anion Gap 14.3 (5-19); Aspartate Amino Transferase 30 U/L (0-40); Blood Urea Nitrogen 8 mg/dL (6-20); Calcium 8.9 mg/dL (8.5-10.5); Carbon Dioxide 27 mmol/L (22-29); Chloride 101 mmol/L (98-107); Globulin 2.6 g/dL (1.3-4.6); Glomerular Filtration Rate 160.4 mL/min (90-130); Glucose 129 mg/dL (65-115); Osmolality Calculated 288 mOsm/kg (285-295); Potassium 3.3 mmol/L (3.5-5.1); Sodium 139 mmol/L (136-145); Total Bilirubin 0.6 mg/dL (0.15-1.2)
[2021-05-22] MEDS: hyDRALAzine 20 mg/mL INJ 1 mL 10 MG IVP (12:27)
--- NOTE | 2021-05-29 05:49 | DCPLANNER ---
income tax manager had message to schedule a follow up appointment for patient with Dr. Elias. income tax manager emailed patients information to Patrick Miller and Julie in the office of Dr. Elias. Patients information will be printed and reviewed. Clinic will call patient with appointment information.
--- NOTE | 2021-05-30 08:27 | DCPLANNER ---
Patient has a follow up appointment scheduled for Friday, June 13, 2021 at 2:[address] Elias. Clinic will call patient with appointment information.
--- NOTE | 2021-06-27 15:28 | DCPLANNER ---
Patient had a follow up appointment scheduled with Dr. Elias - patient did attend appointment.
== END 2021-05-22 13:06 | disposition home or self-care (01) ==
PROVIDERS: Emergency Provider Family Medicine; PCP Emergency Medicine
DX: R31.9 Hematuria, unspecified (principal); I10 Essential (primary) hypertension
CPT/HCPCS: 71045; 74176; 80053; 81001; 85025; 87086; 93005; 96374; 96375; 99283; J0360; J3490

== ENCOUNTER 2021-06-13 07:01 | Outpatient (CLI) | payer SELFPAY ==
--- NOTE | 2021-06-13 07:00 | XRR_ITS ---
PROCEDURE INFORMATION: Exam: XR Abdomen Exam date and time: 06/13/2021 7:00 AM Age: 30 years old Clinical indication: Other: Right flank pain; Additional info: Renal stones TECHNIQUE: Imaging protocol: XR of the abdomen. Views: Frontal supine view of the abdomen. 1 View. COMPARISON: CR XR KUB [id number] 11/19/2018 7:20 AM FINDINGS: Gastrointestinal tract: Normal. No bowel dilation. Organs: There is a cluster of calcifications in the midportion of the left kidney with the largest calcification measuring about 14 mm in diameter. No calcifications are seen in the projection of the right kidney ureters or bladder. Bones/joints: Unremarkable. XR/XR KUB [id number] IMPRESSION: Left nephrolithiasis which has similar appearance to previous CT scan.
== END 2021-06-13 07:02 | disposition home or self-care (01) ==
LOC: RAD 07:03
PROVIDERS: Visit Provider Urology
DX: N20.0 Calculus of kidney (principal); R10.9 Unspecified abdominal pain
CPT/HCPCS: 74018; 81003

== ENCOUNTER → 2021-06-25 08:01 | Outpatient (BNVA) | payer SELFPAY | PROVIDERS: Visit Provider Urology | DX: N20.9 Urinary calculus, unspecified (principal) | CPT/HCPCS: 80048; 81003; 82131; 82140; 82340; 82436; 82507; 82570; 83735; 83935; 84100; 84300; 84550 ==

== ENCOUNTER → 2021-08-07 08:00 | Outpatient (BNVA) | payer SELFPAY | PROVIDERS: Visit Provider Urology | DX: N20.9 Urinary calculus, unspecified (principal) | CPT/HCPCS: 81003 ==